=== PATIENT | female | born 1940 | race Caucasian/White ===

== ENCOUNTER 2019-02-05 10:31 | Inpatient (IN) | payer OTHER, BC ==
[~2019-02-05] VITALS: Ht 170.2 cm; Wt 60.4 kg
[2019-02-05 10:31] VITALS: BP 142/90
[2019-02-05 10:56] LABS: URINE BILIRUBIN NEGATIVE (Negative); URINE BLOOD TRACE (Negative); URINE CLARITY SL CLOUDY; URINE COLOR YELLOW; URINE GLUCOSE-RANDOM* NEGATIVE (Negative); URINE KETONES NEGATIVE (Negative); URINE LEUKOCYTES-REFLEX 2+ (Negative); URINE NITRITE-REFLEX POSITIVE (Negative); URINE PROTEIN (DIPSTICK) NEGATIVE (Negative); URINE SPECIFIC GRAVITY 1.015 (1.005-1.035); URINE UROBILINOGEN 0.2 E.U./dl (0.2-1.0)
[2019-02-05 10:56] LABS: ABSOLUTE NEUTROPHILS 6.3 thou/uL (1.4-8.2); BASOPHILS 0.5 % (0.0-2.0); EOSINOPHILS 2.3 % (0.0-3.0); HEMATOCRIT 35.2 % (37.0-47.0); HEMOGLOBIN 11.9 gm/dL (12.0-15.0); MCH 31.4 pg (26.0-34.0); MCHC 33.7 g/dL (28.0-37.0); MCV 93.2 fL (80.0-100.0); MONOCYTES 9.7 % (1.0-8.0); PLATELET COUNT 272 thou/uL (150-400); POLYS 68.5 % (36.0-66.0); RBC 3.78 mil/uL (4.20-5.00); RDW 13.7 % (10.5-14.5); WBC 9.1 thou/uL (4.0-11.0)
[2019-02-05 11:04] LABS: AMP/METHAMP Negative (Negative); BARBITURATES Negative (Negative); BENZODIAZEPINES Negative (Negative); COCAINE Negative (Negative); METHADONE Negative (Negative); OPIATES POSITIVE (Negative); PCP Negative (Negative)
[2019-02-05 11:05] LABS: BACTERIA-REFLEX >30 Many /HPF (None Seen); CASTS None Seen /LPF (None Seen); CRYSTALS None Seen /LPF (None Seen); SQUAMOUS None Seen /LPF (0-3); URINE RBC None Seen /HPF (0-2); URINE WBC-REFLEX 6-15 Few /HPF (0-5)
[2019-02-05 11:06] LABS: CALCIUM 10.4 mg/dL (8.5-10.1); CREATININE 1.7 mg/dL (0.6-1.0); POTASSIUM 3.9 mmol/L (3.5-5.1)
[2019-02-05 11:16] LABS: ALBUMIN 3.3 g/dL (3.4-5.0); DIRECT BILIRUBIN 0.1 mg/dL (<0.1-0.3); TOTAL BILIRUBIN 0.5 mg/dL (<0.1-1.0); TOTAL PROTEIN 6.9 g/dL (6.4-8.2)
[2019-02-05 12:31] VITALS: BP 149/81
[2019-02-05 13:18] VITALS: BP 137/73
[2019-02-05 13:47] VITALS: BP 160/78
--- NOTE | 2019-02-05 14:43 | NUR ---
pt arrived to floor from emergency room per cart in stable condition accompanied by spouse.Pt was sedated and somtimes restless.Admission hx,assessment and care plan completed.Pt unable to participate in the admission process but spouse provides all the information needed.Ivf initiated.Dr Davies rounded on pt and order noted.Will continue to monitor.
[2019-02-05] MEDS ORDERED: LIPITOR 20 MG T20 M1 PO (15:37)
[2019-02-05] MEDS ORDERED: CLONIDINE0.1 PO (15:38)
[2019-02-05] MEDS ORDERED: SYNTHROID25 MC1 PO (15:38)
[2019-02-05] MEDS ORDERED: LASIX 20 MG TAB20 MG PO (15:38)
[2019-02-05] MEDS ORDERED: ONDANSETRON HCL4 M2 PO (15:39)
[2019-02-05] MEDS ORDERED: OXYCODONE HCL10 MG PO (15:39)
[2019-02-05] MEDS ORDERED: HYDROXYZINE HCL10 M1 PO (15:40)
[2019-02-05] MEDS ORDERED: ZANAFLEX4 MG PO (15:40)
[2019-02-05] MEDS ORDERED: DEPAKOTE125 MG PO (15:41)
[2019-02-05] MEDS ORDERED: PROSCAR 5MG TABL5 MG PO (15:44)
[2019-02-05] MEDS ORDERED: REMERON15 MG PO (15:45)
[2019-02-05] MEDS ORDERED: CYMBALTA60 MG PO (15:45)
[2019-02-05] MEDS ORDERED: TRAZODONE HCL50 MG PO (15:46)
[2019-02-05] MEDS ORDERED: PROPAFENONE 22225 MG PO (15:47)
[2019-02-05] MEDS ORDERED: ZYRTEC10 M4 PO (16:01)
[2019-02-05] MEDS ORDERED: OXYBUTYNIN 5 MG5 M2 PO (16:01)
[2019-02-05 18:08] LABS: FOLIC ACID 9.2 ng/mL (8.6-58.9)
--- NOTE | 2019-02-05 19:37 | NUR ---
APPROACHED PT. PT AWAKE ALERT. PT AGITATED. PT DENIES TAKING MEDICATION IN AN EFFORT TO COMMIT SUICIDE. PT DEMANDING TO CALL AND DAUGHTER. PT ALSO DEMANDING TO BE TRASFERED TO [employer]. "I'VE BEEN AWAKE SINCE 330PM WANTING SOMETHING TO EAT AND NO ONE HAS BROUGHT ME ANYTHING." DID SPEAK WITH PTS JUST NOW AND STATES THAT HE DID TELL THE DOCTOR THAT HE FEARED IT WAS POSSIBLY A SUICIDE ATTEMPT. BUT, SINCE TALKING WITH HIS DAUGHTER HE HAS CHANGED HIS MIND AND BELIEVES IT MAY HAVE JUST BEEN ACCIDENTAL. AWAIT CALL FROM DAUGHTER, WILL SPEAK TO DIRECTOR OF SLOT OPERATIONS.
[2019-02-05 19:59] VITALS: BP 132/69
[2019-02-06 00:12] VITALS: BP 117/69
--- NOTE | 2019-02-06 08:34 | EKG ---
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: johanna damian : 1940 Requested By: Sejal Elliott Order Number: [id number] MD: Jose Evans Measurements Intervals [place] Rate: 64 P: 59 AZ: 220 QRS: -18 QRSD: 112 T: 0 QT: 487 QTc: 503 Interpretive Statements Sinus rhythm Prolonged [place] interval Abnormal T, consider ischemia, anterior leads Prolonged QT interval No previous ECG available for comparison Electronically Signed On 02-06-2019 8:34:45 CDT by Jose Evans [email or web address] ��������������������������������������������� <ELECTRONICALLY SIGNED> ���������������������������������������� By: Jose Evans MD, [facility] ��������������������������������������������� 02/06/19 0834 [id number] Jose Evans MD, [facility] /EPI
[2019-02-06] MEDS ORDERED: CALCIUM CITRAT1 EAC7 PO (15:29)
[2019-02-06] MEDS ORDERED: VITAMIN B-1100 M1 PO (15:29)
[2019-02-06] MEDS ORDERED: CELECOXIB100 MG PO (15:30)
[2019-02-06 15:58] LABS: HEMATOCRIT 32.8 % (37.0-47.0); MCH 31.2 pg (26.0-34.0); MCHC 33.5 g/dL (28.0-37.0); MCV 93.1 fL (80.0-100.0); RBC 3.52 mil/uL (4.20-5.00); RDW 14.3 % (10.5-14.5); WBC 7.1 thou/uL (4.0-11.0)
[2019-02-06 16:20] LABS: CALCIUM 9.3 mg/dL (8.5-10.1); CREATININE 1.1 mg/dL (0.6-1.0); POTASSIUM 3.3 mmol/L (3.5-5.1)
[2019-02-06 16:26] LABS: TOTAL BILIRUBIN 0.4 mg/dL (<0.1-1.0); TOTAL PROTEIN 6.1 g/dL (6.4-8.2)
[2019-02-06] MEDS ORDERED: CEFUROXIME250 MG PO (16:30)
--- NOTE | 2019-02-06 16:49 | NUR ---
RECEIVED CONSULT. SW REVIEWED CHART AND SPOKE WITH NURSING AND ATTENDING PHYSICIAN. PT WAS ADMITTED FROM HOME DUE TO OVERDOSE/POSSIBLE SI. 1:1 SITTER ORDERED. PSYCH EVALUATED PT YESTERDAY AND SPOKE WITH PT'S , WHO WAS AGREEABLE WITH COMPLETING AFFIDAVIT AT THAT TIME. PT'S AND FAMILY NOT WILLING TO COMPLETE AFFIDAVITS TODAY. PT REQUESTING TO DISCHARGE HOME. PSYCH RE-EVALUATED PT THIS AFTERNOON. PT NOT SI/HI. PT DOES NOT MEET CRITERIA FOR ADMISSION TO INPT PSYCH AT THIS TIME. PT HAS AN OUTPT PSYCHIATRIST. PT'S FAMILY AT BEDSIDE. DISCHARGE ORDERS WRITTEN. PT DENIES NEEDING ANY ADDITIONAL INFORMATION OR RESOURCES. CRISIS HOTLINE INFO PROVIDED. NO ADDITIONAL SW NEEDS IDENTIFIED AT THIS TIME, BUT IS AVAILABLE TO ASSIST SHOULD NEEDS ARISE.
[2019-02-06 16:51] VITALS: BP 112/75
[2019-02-06 18:01] VITALS: BP 112/75
--- NOTE | 2019-02-06 18:01 | NUR ---
PATIENT DENIED SUICIDAL IDEATION TODAY AND FOR PREVIOUS TIMES. SHE EXPRESSED SHE DOES NOT WANT TO KILL HERSELF OR HARM HERSELF. DR. ABDI ROUNDED AND DISCONTINUED 1:1. EXPRESSED IT WAS OK FOR HER TO DISCHARGE TO HOME. DR. LOYD ENTERED IN DISCHARGE INFORMATION. SCRIPT AND INFORMATION WAS PROVIDED TO PATIENT. IV WAS DISCONTINUED. SHE WAS WHEELED OUT TO VEHICLE WITH ASSISTANCE OF STAFF.
== END 2019-02-06 17:45 | disposition home or self-care (01) | DRG 917 ==
LOC: ER 10:31 → 3W 11:37 → EROBS 11:37 → 3W 13:18 → ENTRNSPT 02-06 17:31 → 3W 02-06 17:45
PROVIDERS: Emergency Medicine; ADMIT Internal Medicine
DX: T40.601A Poisoning by unspecified narcotics, accidental (unintentional), initial encounter (principal); G92 Toxic encephalopathy; N17.9 Acute kidney failure, unspecified; N39.0 Urinary tract infection, site not specified; I10 Essential (primary) hypertension; G47.33 Obstructive sleep apnea (adult) (pediatric); E03.9 Hypothyroidism, unspecified; F17.210 Nicotine dependence, cigarettes, uncomplicated; F19.10 Other psychoactive substance abuse, uncomplicated; F32.9 Major depressive disorder, single episode, unspecified; M54.9 Dorsalgia, unspecified; Z66 Do not resuscitate; G89.4 Chronic pain syndrome; I48.2 Chronic atrial fibrillation; F10.10 Alcohol abuse, uncomplicated; Z79.891 Long term (current) use of opiate analgesic; Y92.89 Other specified places as the place of occurrence of the external cause; Z79.899 Other long term (current) drug therapy
CPT/HCPCS: 10879